=== PATIENT | female | born 1965 | race Caucasian/White ===

== ENCOUNTER → 2020-03-01 12:30 | Outpatient (BNVA) | payer OTHER, SELFPAY | PROVIDERS: Family Provider Family Medicine; Visit Provider Nurse Practitioner Family | DX: Z20.828 Contact with and (suspected) exposure to other viral communicable diseases (principal) | CPT/HCPCS: 87635 ==

== ENCOUNTER → 2020-09-04 09:13 | Outpatient (BNVA) | payer SELFPAY | PROVIDERS: Family Provider Family Medicine; Visit Provider Podiatrist Foot & Ankle Surgery | DX: S86.012A Strain of left Achilles tendon, initial encounter (principal); X58.XXXA Exposure to other specified factors, initial encounter; M79.89 Other specified soft tissue disorders; M19.072 Primary osteoarthritis, left ankle and foot | CPT/HCPCS: 73610 ==

== ENCOUNTER 2020-09-04 10:54 | Outpatient (CLI) | payer SELFPAY | END 2020-09-04 10:55 | disposition home or self-care (01) | LOC: SPT 10:55 | PROVIDERS: Family Provider Family Medicine; Visit Provider Podiatrist Foot & Ankle Surgery | DX: Z46.89 Encounter for fitting and adjustment of other specified devices (principal); S86.019D Strain of unspecified Achilles tendon, subsequent encounter; X58.XXXD Exposure to other specified factors, subsequent encounter | CPT/HCPCS: L4361 ==

== ENCOUNTER → 2020-11-07 10:04 | Outpatient (BNVA) | payer OTHER, SELFPAY | PROVIDERS: Family Provider Family Medicine; Visit Provider Family Medicine | DX: Z20.828 Contact with and (suspected) exposure to other viral communicable diseases (principal) | CPT/HCPCS: 87635 ==

== ENCOUNTER → 2021-04-19 10:15 | Outpatient (BNVA) | payer OTHER, SELFPAY | PROVIDERS: Family Provider Family Medicine; Visit Provider Family Medicine | DX: Z20.828 Contact with and (suspected) exposure to other viral communicable diseases (principal) | CPT/HCPCS: 87426; 87635 ==

== ENCOUNTER 2021-04-20 11:52 | Outpatient (CLI) | payer OTHER, SELFPAY ==
[2021-04-20 12:17] VITALS: BP 139/89; PULSE 68; RESP 17; TEMP 36.6; O2SAT 97; BMI 49.4
[2021-04-20 13:25] VITALS: BP 134/75; PULSE 86; RESP 17; TEMP 36.4; O2SAT 98
[2021-04-20 14:25] VITALS: BP 127/77; PULSE 82; RESP 17; TEMP 36.4; O2SAT 94
== END 2021-04-20 11:53 | disposition home or self-care (01) ==
LOC: OPS 11:53
PROVIDERS: Visit Provider Family Medicine
DX: U07.1 COVID-19 (principal)
CPT/HCPCS: 96365

== ENCOUNTER → 2021-09-18 10:40 | Outpatient (BNVA) | payer SELFPAY | PROVIDERS: Referring Provider Family Medicine; Visit Provider Orthopaedic Surgery | DX: S89.90XA Unspecified injury of unspecified lower leg, initial encounter (principal); M17.12 Unilateral primary osteoarthritis, left knee; M23.304 Other meniscus derangements, unspecified medial meniscus, left knee; W54.1XXA Struck by dog, initial encounter | CPT/HCPCS: 73560; 73565 ==

== ENCOUNTER 2022-12-29 20:07 | Observation (INO) | payer SELFPAY ==
[2022-12-29 20:13] VITALS: BP 157/80; PULSE 95; RESP 20; TEMP 36.6; O2SAT 99; BMI 57.7
--- NOTE | 2022-12-29 20:46 | W.ED.ARRPALP ---
HPI - Arrhythmia/Palpitations General: Chief Complaint: Arrhythmia/Palpitations Stated Complaint: shortness of breath Time Seen by Provider: 12/29/22 20:31 History of Present Illness: 57-year-old female reports that she has a history of paroxysmal atrial fibrillation. She felt herself going into A-fib last night around 8 PM. She took an old Cardizem 120 mg extended release tablet at 10 PM. She took another 1 at 10 AM this morning because she was still having symptoms. It does not seem to have made any difference. She has shortness of breath when she lays flat or exerts herself. She also feels sort of lightheaded and faint with exertion. She takes aspirin. Her only comorbid condition is morbid obesity. She denies any ischemic or structural heart disease. No diagnosed sleep apnea. Associated symptoms: Deny nausea, syncope or vomiting Review of Systems General: Reports: 10 or more systems reviewed and unremarkable except in HPI and below Const: Denies: fever(s), chills or body aches Eyes: Denies: change in vision Card: Denies: edema or syncope Resp: Denies: productive cough GI: Denies: abdominal pain, nausea, vomiting or diarrhea : Denies: flank pain, dysuria or urinary frequency Musc: Denies: neck pain, back pain, extremity pain or extremity swelling Skin/Breast: Denies: rash or erythema Neuro: Denies: headache(s), numbness in extremities, weakness in extremities, lack of coordination or difficulty walking PFS ED PFSH: Social History Smoking and tobacco status: never smoked Alcohol intake: never Substance/Drug Use: never Current occupational status: employed Physical Exam Const: COMMON NORMALS: no limitations and alert EXAM LIMITATIONS: no altered mental status OTHER: Morbid obesity, prefers to sit up rather than lay flat HENMT: COMMON NORMALS: normocephalic, atraumatic and external ears normal HEAD & SCALP: normocephalic and atraumatic EXTERNAL EAR: Yes external ears normal MOUTH: no muffled voice Eye: COMMON NORMALS: EOMs intact bilaterally, conjunctivae normal and no scleral icterus CONJUNCTIVA: Yes conjunctivae normal Neck/C-Spine: COMMON NORMALS: no JVD GENERAL: Yes normal visual inspection and Yes trachea midline Resp: COMMON NORMALS: normal respiratory effort, No use of accessory muscles and clear to auscultation bilaterally AUSCULTATION: clear to auscultation bilaterally Cardio: COMMON NORMALS: no JVD RATE: tachycardic RHYTHM: abnormal rhythm HEART SOUNDS: no murmurs GI: COMMON NORMALS: Soft to palpation and non-tender PALPATION: Yes Soft to palpation and No Guarding due to palpation present (GI) Extremity: COMMON NORMALS: normal to inspection Neuro: COMMON NORMALS: moves all extremities, no focal motor deficits and no sensory deficits noted SENSORIUM/ORIENTATION: Yes alert SPEECH: speech normal Psych: COMMON NORMALS: mental status grossly normal, Normal thought process present, cooperative, normal affect and speech normal SPEECH: Yes normal speech THOUGHT PROCESS: Normal thought process present Skin: COMMON NORMALS: no rashes or lesions noted, turgor normal and no jaundice GENERAL SKIN EXAM: no rashes or lesions noted and turgor normal Course Vital Signs: Vital signs: Vital Signs Temperature 97.9 F 12/29/22 20:13 Pulse Rate 82 12/29/22 21:18 Respiratory Rate 23 H 12/29/22 21:18 Blood Pressure 147/99 12/29/22 21:18 Pulse Oximetry 94 12/29/22 21:18 Oxygen Delivery Me thod Room Air, Nasal C annula 12/29/22 21:18 MDM - Arrhythmia/Palpitations Medical Decision Making Paroxysm of atrial fibrillation with intermittent rapid ventricular response. [id number] score is low. Patient prefers aspirin over anticoagulation. She is symptomatic with her A-fib. She would like to achieve sinus rhythm if possible. She states she is very sensitive to medications. We will start with a small dose of Cardizem as an IV bolus. We will also check TSH, electrolytes, blood sugar, hemoglobin. EKG my interpretation from 2039 08 PM. Sinus rhythm, first-degree AV block, QRS duration is normal, isolated T wave inversion in lead III, no other abnormal ST or T waves. Patient got 10 mg of Cardizem. She is rate controlled but still in atrial fibrillation. She did a trial of ambulation to the bathroom and was extremely short of breath. She still does not want me to give her any large bolus. I will give her another 10 mg bolus. If she does not cardiovert, she'd like to do a cardizem drip overnight. I spoke to hospitalist about admitting to [facility] on cardizem gtt. Lab Data 12/29/22 21:14 12/29/22 21:14 Laboratory Results WBC 8.05 10^3/uL (3.29-11.43) 12/29/22 21:14 RBC 4.21 10^6/uL (3.85-5.65) 12/29/22 21:14 Hgb 12.70 g/dL (11.27-16.99) 12/29/22 21:14 Hct 39.5 % (36-47) 12/29/22 21:14 MCV 93.8 fl (85-98) 12/29/22 21:14 MCH 30.2 pg (27-33) 12/29/22 21:14 MCHC 32.2 g/dL (30-55) 12/29/22 21:14 RDW 14.0 % (12.1-15.1) 12/29/22 21:14 Plt Count 290 10^3/cmm (157-399) 12/29/22 21:14 MPV 10.1 fL (7.4-10.4) 12/29/22 21:14 Neut % (Auto) 60.1 % 12/29/22 21:14 Lymph % (Auto) 27.5 % 12/29/22 21:14 Menard % (Auto) 9.3 % 12/29/22 21:14 Eos % (Auto) 2.0 % 12/29/22 21:14 Baso % (Auto) 0.7 % 12/29/22 21:14 Neut # (Auto) 4.84 10^3/uL (1.8-7.7) 12/29/22 21:14 Lymph # (Auto) 2.2 10^3/uL (0.8-4.8) 12/29/22 21:14 [place]ard # (Auto) 0.8 10^3/uL (0.2-0.9) 12/29/22 21:14 Eos # (Auto) 0.2 10^3/uL (0.0-0.8) 12/29/22 21:14 Baso # (Auto) 0.1 10^3/uL (0.0-0.1) 12/29/22 21:14 Nucleated RBC % (auto) 0 % 12/29/22 21:14 Nucleated RBCs # 0.0 /100WBC 12/29/22 21:14 Sodium 142 mmol/L (136-145) 12/29/22 21:14 Potassium 4.0 mmol/L (3.5-5.1) 12/29/22 21:14 Chloride 105 mmol/L (98-107) 12/29/22 21:14 Carbon Dioxide 28 mmol/L (22-29) 12/29/22 21:14 Anion Gap 13.0 (5-19) 12/29/22 21:14 BUN 19 mg/dL (6-20) 12/29/22 21:14 Creatinine 0.8 mg/dL (0.5-0.9) 12/29/22 21:14 GFR Calculation 74.2 mL/min (90-130) L 12/29/22 21:14 Glucose 89 mg/dL (65-115) 12/29/22 21:14 Calculated Osmolality 296 mOsm/kg (285-295) H 12/29/22 21:14 Calcium 8.8 mg/dL (8.5-10.5) 12/29/22 21:14 Magnesium 2.1 mg/dL (1.7-2.3) 12/29/22 21:14 Total Bilirubin 0.2 mg/dL (0.15-1.2) 12/29/22 21:14 AST 15 U/L (0-32) 12/29/22 21:14 ALT 18 U/L (0-33) 12/29/22 21:14 Alkaline Phosphatase 81 U/L (35-105) 12/29/22 21:14 Total Protein 6.9 g/dL (6.6-8.7) 12/29/22 21:14 Albumin 4.1 g/dL (3.5-5.2) 12/29/22 21:14 Globulin 2.8 g/dL (1.3-4.6) 12/29/22 21:14 TSH 4.33 uIU/mL (0.27-4.20) H 12/29/22 21:14 Discharge Plan Discharge Patient Disposition: Placed in Observation Clinical Impression: Atrial fibrillation Condition: Stable Prescriptions: No Action aspirin [Adult Aspirin Regimen] 81 mg tablet,delayed release (DR/EC) 81 mg PO DAILY (DME) RANDAL lema See Rx Instructions .Route .MEDSUPPLY Qty: 1 0RF Rx Instructions: As directed fluorouracil [Efudex] 5 % cream 1 applic topical BID 42 Days Qty: 40 1RF Referrals: Chad Whaley MD [Primary Care Provider] - Coding Level of Care Code ED Hand Mold Maker for Aideeg Christiano
[2022-12-29] MEDS: aspirin 81 mg Chew Tablet 324 MG PO (20:52)
[2022-12-29] MEDS: dilTIAZem 5 mg/mL SDV 5 mL 10 MG IVP ×2 (21:15→22:10)
[2022-12-29] MEDS: sodium chloride 0.9% 500 ML 999 ML IV (21:15)
[2022-12-29 21:16] LABS: Basophils # 0.1 10^3/uL (0.0-0.1); Basophils % 0.7 %; Eosinophils # 0.2 10^3/uL (0.0-0.8); Hematocrit 39.5 % (36-47); Lymphocytes # 2.2 10^3/uL (0.8-4.8); Lymphocytes % 27.5 %; Mean Corpuscular HGB Conc 32.2 g/dL (30-55); Mean Corpuscular Hemoglobin 30.2 pg (27-33); Mean Corpuscular Volume 93.8 fl (85-98); Mean Platelet Volume 10.1 fL (7.4-10.4); Monocytes # 0.8 10^3/uL (0.2-0.9); Monocytes % 9.3 %; Neutrophils # 4.84 10^3/uL (1.8-7.7); Neutrophils % 60.1 %; Nucleated Red Blood Cells % 0 %; Platelet Count 290 10^3/cmm (157-399); Red Blood Count 4.21 10^6/uL (3.85-5.65); White Blood Count 8.05 10^3/uL (3.29-11.43)
[2022-12-29 21:18] VITALS: BP 147/99; PULSE 82; RESP 23; O2SAT 94
[2022-12-29 21:42] LABS: Alanine Aminotransferase 18 U/L (0-33); Albumin Level 4.1 g/dL (3.5-5.2); Alkaline Phosphatase 81 U/L (35-105); Aspartate Amino Transferase 15 U/L (0-32); Blood Urea Nitrogen 19 mg/dL (6-20); Calcium 8.8 mg/dL (8.5-10.5); Carbon Dioxide 28 mmol/L (22-29); Globulin 2.8 g/dL (1.3-4.6); Glomerular Filtration Rate 74.2 mL/min (90-130); Glucose 89 mg/dL (65-115); Magnesium 2.1 mg/dL (1.7-2.3); Thyroid Stimulating Hormone 4.33 uIU/mL (0.27-4.20); Total Bilirubin 0.2 mg/dL (0.15-1.2); Total Protein 6.9 g/dL (6.6-8.7)
[2022-12-29 22:05] LABS: Chloride 105 mmol/L (98-107); Osmolality Calculated 296 mOsm/kg (285-295); Sodium 142 mmol/L (136-145)
--- NOTE | 2022-12-29 22:09 | XRR_ITS ---
PROCEDURE INFORMATION: Exam: XR Chest Exam date and time: 12/29/2022 10:22 PM Age: 57 years old Clinical indication: Dyspnea and shortness of breath; Patient HX: SOB and dyspnea. History of afib. ; Additional info: Dyspnea, afib TECHNIQUE: Imaging protocol: Radiologic exam of the chest. Views: 1 view. COMPARISON: CR XR chest 1V [id number] 08/09/2017 8:03 AM FINDINGS: Lungs: Lungs are clear. Pleural spaces: No pleural effusion. No pneumothorax. Heart/Mediastinum: Cardiomediastinal silhouette is within normal limits but cardiac silhouette size is slightly increased compared to the prior exam. Bones/joints: No acute osseous abnormality. Post ACDF. XR/XR chest 1V portable [id number] IMPRESSION: Mild enlargement of the cardiac silhouette compared to the prior exam which may reflect elevated intravascular volume and/or small pericardial effusion.
[2022-12-29 22:43] LABS: Troponin(5th) Baseline 8 ng/L (0-10)
--- NOTE | 2022-12-29 23:01 | ECG_ITS ---
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 Measurements Intervals [place] Rate: 62 P: 0 CA: 0 QRS: 18 QRSD: 121 T: 10 QT: 404 QTc: 413 Interpretive Statements ATRIAL FIBRILLATION POSSIBLE RIGHT VENTRICULAR CONDUCTION DELAY [RSR (QR) IN V1/V2] POSSIBLE LATERAL MYOCARDIAL INFARCTION , OF INDETERMINATE AGE [30 ms Q WAVE IN I/aVL/V5/V6] Compared to ECG 08/09/2017 14:08:40 No significant changes Electronically Signed On 12-30-2022 16:02:58 CDT by Pancho Ferrer M.D. [email or web address]! [email or web address]/store/[id number]
[2022-12-29 23:23] VITALS: BP 152/85; PULSE 73; RESP 18; O2SAT 97
[2022-12-29 23:34] LABS: Troponin 5 2HR 6.44 ng/L (0-10)
--- NOTE | 2022-12-29 23:47 | PM.HP ---
Providers/Chief Complaint Admitting Physician: Shonda Torres MD Primary Care Provider: Chad Whaley MD Chief Complaint: shortness of breath History of Present Illness Shalonda Dailey is a 57 year old female with history of paroxysmal A-fib, asymptomatic and controlled since last 4 years, only on aspirin 81 mg daily ,multiple sclerosis presented with complaint of palpitation and shortness of breath at home since 1 day. She reports taking Cardizem ER 300 mg which she had from 2019 twice before coming to ER but with no relief. She had stress test done 5 years ago which was normal. She denies any fever nausea vomiting chest pain cough urinary or bowel complaints. She reports medications like metoprolol or Cardizem causes hypotension and bradycardia and hence she has not been taking any medications at home. She also reported to have recent stress related to her parents health. In ER she received 10 mg of IV Cardizem for heart rate of 140, but then she complained of feeling dizzy while walking to the bathroom. Currently her heart rate is 50-70 still in A-fib but she is asymptomatic now. Review of Systems Narrative: As per HPI Medications/Allergies Home Medications Medication Instructions Recorded Confirmed Last Taken Type CAM walker #1 ea 09/04/20 12/16/22 Unknown Rx aspirin 81 mg tablet,delayed 81 mg PO DAILY 09/04/20 12/16/22 04/20/21 08:00 History release (Adult Aspirin Regimen) fluorouracil 5 % topical cream 1 applic topical BID 6 weeks #40 12/16/22 12/16/22 Unknown Rx (Efudex) grams Allergies Allergy/AdvReac Type Severity Reaction Status Date / Time No Known Allergies Allergy Verified 12/16/22 12:57 PFSH Acute PFSH: Social History Smoking and tobacco status: never smoked Alcohol intake: never Substance/Drug Use: never Current occupational status: employed Vitals/I&O/Wt Last Vital Signs Temp 97.9 F 12/29/22 20:13 Pulse 73 12/29/22 23:23 Resp 18 12/29/22 23:23 BP 152/85 12/29/22 23:23 Pulse Ox 97 12/29/22 23:23 O2 Del Method Room Air, Nasal Cannula 12/29/22 21:18 12/29/22 12/29/22 12/30/22 14:59 22:59 06:59 Intake Total 500 / 500 Balance 500 / 500 Weight last 48 hrs Weight 172.365 kg Physical Exam Narrative: She is alert awake oriented x3 not in acute distress, she is morbidly obese Chest clear to auscultation bilaterally Cardiovascular normal heart sounds regular rhythm Abdomen NAD Extremities bilateral 1+ edema present, chronic vascular changes seen in bilateral lower extremities. Data 12/29/22 21:14 12/29/22 21:14 CXR: Radiologist's impression: MPRESSION: Mild enlargement of the cardiac silhouette compared to the prior exam which may reflect elevated intravascular volume and/or small pericardial effusion. ? EKG 1: My Interpretation: Atrial fibrillation with rate controlled at 62 bpm, no acute ST-T changes A&P Assessment and plan (1) Atrial fibrillation: 57-year-old female with past history of paroxysmal atrial fibrillation on aspirin at home, multiple sclerosis presented with complaint of shortness of breath and palpitation and found to have heart rate of 140. Plan Admit to [facility] for observation She is asymptomatic now. EKG showed atrial fibrillation with rate controlled. Will start metoprolol 25 mg twice daily Continue to monitor Check 2D echo in a.m. Continue home medications. IV Pepcid 20 mg every 12 for stress ulcer prophylaxis Subcutaneous Lovenox 40 mg daily for DVT prophylaxis. She is full code for now Attestations Medical Necessity Statement*: She is here for observation since atrial fibrillation with controlled ventricular rate. Time Spent in Patient Care: 35 minutes Coding Level of Care Code Critical Care >/= 30 minutes Diagnoses Atrial fibrillation I48.91 Time Spent (min) 35
[2022-12-29 23:55] LABS: Troponin 5 2HR Delta -1.56 ABS# (0-10)
[2022-12-30] VITALS (11 sets, daily range): BP systolic 114–143; BP diastolic 69–81; PULSE 60–85; RESP 16–18; TEMP 36.4–36.7; O2SAT 96–99
--- NOTE | 2022-12-30 | USCV_ITS ---
Shalonda Dailey Age: 57 Gender: F : 1965 Exam Date: 12/30/2022 12:29 Ordering Phys: Aime Pulido MD Technologist: Sandeep Hicks Exam Location: [facility] [place] Indication: chest pain BP: 110 / 73 HR: 63 Rhythm: Sinus Technical Quality: Adequate MEASUREMENTS (Male / Female) Normal Values 2D ECHO LV Diastolic Diameter PLAX 4.1 cm 4.2 - 5.9 / 3.9 - 5.3 cm LV Systolic Diameter PLAX 3.1 cm IVS Diastolic Thickness 1.6 cm 0.6 - 1.0 / 0.6 - 0.9 cm IVS Systolic Thickness 1.8 cm LVPW Diastolic Thickness 1.6 cm 0.6 - 1.0 / 0.6 - 0.9 cm LVPW Systolic Thickness 1.5 cm LVOT Diameter 2.0 cm LV Ejection Fraction 2D Teich 47.1 % LV Ejection Fraction MOD 2C 66.6 % LV Ejection Fraction 2C AL 66.5 % LA Diameter 3.1 cm M-MODE Aortic Annulus Diameter 3.5 cm LA Ao Ratio MM 0.9 MV E Point Septal Separation 0.6 cm DOPPLER AV Peak Velocity 137.0 cm/s LVOT Peak Velocity 97.0 cm/s AV Area Cont Eq vti 2.3 cm squared AV Area Cont Eq pk 2.2 cm squared MV Area PHT 5.0 cm squared Mitral E to A Ratio 6.7 MV E' Velocity 85.0 cm/s Mitral E to MV E' Ratio 9.1 Mitral E to LV E' Lateral Ratio 9.5 Mitral E to LV E' Septal Ratio 8.7 TR Peak Velocity 166.7 cm/s TR Peak Gradient 11.1 mmHg TV Peak E Velocity 93.0 cm/s Right Atrial Pressure 3.0 mmHg Pulmonary Artery Systolic Pressu 14.1 mmHg FINDINGS Left Ventricle Left ventricle is normal in size. LV systolic function is normal with EF of 55 to 60%. No regional wall motion abnormalities are seen. Right Ventricle Normal in size and function Right Atrium Normal in size Left Atrium Normal in size Mitral Valve Structurally normal mitral valve. Aortic Valve Structurally normal aortic valve. No significant stenosis or regurgitation. Tricuspid Valve Mild tricuspid regurgitation. Insufficient TR jet to calculate RVSP Pulmonic Valve Not well visualized Pericardium Normal Aorta Normal in size IVC Appears to be normal CONCLUSIONS LV systolic function is normal with EF 55 to 60%. Mild tricuspid regurgitation Compared to prior echocardiogram from 08/09/2017, no significant changes are seen Cristiano Wray MD (Electronically Signed) Final Date: 30 December 2022 17:16 S
[2022-12-30] MEDS: enoxaparin 40 mg/0.4 mL Syringe SUBCUT (00:19)
--- NOTE | 2022-12-30 01:11 | PC.NURSE ---
Shalonda Dailey was transferred to room 254 at 2327, patient is admitted under the care of Dr. Torres. The patient ambulated from the ED bed to the hospital bed with stand by assist. Patient vital signs are 127/68, HR 75, RR 18 and even and unlabored, SPO2 99% on RA, temp 97.5 orally. Patient denies chest pain or any other pain, Patient is AAOX4. Patient oriented to the room and call light system. Call light and bedside table within reach, family at the bedside.
--- NOTE | 2022-12-30 02:57 | ECG_ITS ---
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 Measurements Intervals [place] Rate: 74 P: 0 [place]: 0 QRS: 30 QRSD: 127 T: 25 QT: 404 QTc: 449 Interpretive Statements ATRIAL FIBRILLATION POSSIBLE RIGHT VENTRICULAR CONDUCTION DELAY [RSR (QR) IN V1/V2] POSSIBLE ANTERIOR MYOCARDIAL INFARCTION , OF INDETERMINATE AGE [30 ms Q WAVE IN V3/V4, OR R < 0.2 mV IN V4] POSSIBLE INFERIOR MYOCARDIAL INFARCTION , PROBABLY OLD [30 ms Q WAVE IN II/aVF] Compared to ECG 12/29/2022 23:01:18 No significant changes Electronically Signed On 12-30-2022 16:04:25 CDT by Pancho Ferrer M.D. [email or web address] [email or web address].[employer] ASA/store/[id number]
[2022-12-30 05:58] LABS: Troponin 5 6HR 6.68 ng/L (0-10)
[2022-12-30 06:03] LABS: Troponin 5 6HR Delta -1.32 ng/L (0-12)
--- NOTE | 2022-12-30 08:44 | USCV_ITS ---
Shalonda Dailey Age: 57 Gender: F : 1965 Exam Date: 12/30/2022 12:29 Ordering Phys: Aime Pulido MD Technologist: Exam Location: [facility] [place] Indication: chest pain BP: 120 / 70 HR: 77 Rhythm: Sinus Technical Quality: Adequate MEASUREMENTS (Male / Female) Normal Values 2D ECHO LV Diastolic Diameter PLAX 4.3 cm 4.2 - 5.9 / 3.9 - 5.3 cm LV Systolic Diameter PLAX 2.8 cm IVS Diastolic Thickness 1.1 cm 0.6 - 1.0 / 0.6 - 0.9 cm IVS Systolic Thickness 2.0 cm LVPW Diastolic Thickness 1.0 cm 0.6 - 1.0 / 0.6 - 0.9 cm LVPW Systolic Thickness 0.9 cm LVOT Diameter 2.0 cm LV Ejection Fraction 2D Teich 64.7 % LV Ejection Fraction MOD 2C 75.0 % LV Ejection Fraction 2C AL 77.1 % LA Diameter 3.7 cm IVC Diameter 1.6 cm M-MODE Aortic Annulus Diameter 2.7 cm LA Ao Ratio MM 1.6 MV E Point Septal Separation 0.7 cm DOPPLER AV Peak Velocity 145.0 cm/s LVOT Peak Velocity 106.0 cm/s AV Area Cont Eq vti 2.4 cm squared AV Area Cont Eq pk 2.4 cm squared MV Area PHT 5.0 cm squared Mitral E to A Ratio 1.0 MV E' Velocity 41.5 cm/s Mitral E to MV E' Ratio 6.9 Mitral E to LV E' Lateral Ratio 7.7 Mitral E to LV E' Septal Ratio 6.3 TR Peak Velocity 156.0 cm/s TR Peak Gradient 9.7 mmHg TV Peak E Velocity 71.0 cm/s Right Atrial Pressure 3.0 mmHg Pulmonary Artery Systolic Pressu 12.7 mmHg FINDINGS Left Ventricle Left ventricle is normal in size. LV systolic function is normal with EF of 65 to 70%. No regional wall motion abnormalities are seen. Right Ventricle Normal in size and function Right Atrium Normal in size Left Atrium Normal in size Mitral Valve Structurally normal mitral valve. Aortic Valve Structurally normal aortic valve. No significant stenosis or regurgitation. Tricuspid Valve Mild tricuspid regurgitation. Insufficient TR jet to calculate RVSP Pulmonic Valve Not well-visualized Pericardium Normal Aorta Normal in size IVC Appears to be normal CONCLUSIONS LV systolic function is normal with EF of 65 to 70%. Mild tricuspid regurgitation Compared to prior echocardiogram from 2017, no significant changes are seen This is an addendum. Images under incorrect patient name. Please disregard report. Cristiano Wray MD (Electronically Signed) Final Date: 30 December 2022 12:39 Amended: 30 December 2022 13:25 C
[2022-12-30] MEDS: aspirin 81 mg EC Tablet PO (08:48)
[2022-12-30] MEDS: metoprolol tartrate 25 mg Tablet PO ×2 (08:48→20:21)
--- NOTE | 2022-12-30 09:04 | P.CONIM_ITS ---
Providers/Reason For Consult Consulting Physician/Specialty*: Cristiano Wray MD/ Cardiology Reason for Consult*: Atrial fibrillation Requesting Physician: Dr Pulido Attending Physician: Aime Pulido MD Primary Care Provider: Chad Whaley MD History of Present Illness History of Present Illness Shalonda Dailey is a 57 year old female with past medical history of multiple sclerosis, paroxysmal atrial fibrillation presented to hospital with 1 day of shortness of breath and palpitations. Her heart rate is well controlled at rest. Cardiology was consulted for evaluation regarding rate control versus rhythm control strategy. Echocardiogram performed today shows normal LV systolic function. Current patient was diagnosed with atrial fibrillation 4 to 5 years ago and since then no more episodes of A-fib. She is not on anticoagulation and does not want to start 1. Her [id number] score is 1 Review of Systems Narrative: CONSTITUTIONAL: No fever chills weight loss or gain or night sweats. [] HEENT: Normocephalic, atraumatic.[] RESPIRATORY: Shortness of breath CARDIOVASCULAR: shortness of breath GI: no nausea vomiting diarrhea. [] MANAGER MEDICARE MARKETING: No numbness, tingling, weakness or loss of function in any part of the body. [] MUSCULOSKELETAL: No knee or joint pain or rashes. [] Medications/Allergies Home Medications Medication Instructions Recorded Confirmed Last Taken Type CAM walker #1 ea 09/04/20 12/30/22 Unknown Rx [facility] Multi Greens 3 cap PO DAILY 12/30/22 12/30/22 Unknown History [facility] Sulfurzyme 3 cap PO DAILY 12/30/22 12/30/22 Unknown History ascorbic acid (vitamin C) 500 mg 1,000 mg PO QAM 12/30/22 12/30/22 Unknown History tablet (Vitamin C) cholecalciferol (vitamin D3) 125 125 mcg PO QAM 12/30/22 12/30/22 Unknown History mcg (5,000 unit) tablet (Vitamin D3) diltiazem HCl 120 mg 120 mg PO BID PRN afib 12/30/22 12/30/22 Unknown History capsule,extended release 12 hr omega-3 fatty acids-fish oil 684 1 cap PO DAILY 12/30/22 12/30/22 Unknown History mg-1,200 mg capsule,delayed release vitamin B complex 1 tab PO QAM 12/30/22 12/30/22 Unknown History Allergies Allergy/AdvReac Type Severity Reaction Status Date / Time No Known Allergies Allergy Verified 12/30/22 09:12 Current Medications Generic Name Dose Route Start Last Admin Trade Name Wu PRN Reason Stop Dose Admin Aspirin 81 mg 12/30/22 09:00 12/30/22 08:48 Aspirin 81 Mg Ec Tablet PO 81 mg DAILY CHARAN Administration Enoxaparin Sodium 40 mg 12/30/22 00:00 12/30/22 00:19 Enoxaparin 40 Mg/0.4 Ml Syringe SUBCUT 40 mg Q24H CHARAN Administration Metoprolol Tartrate 25 mg 12/30/22 09:00 12/30/22 08:48 Metoprolol Tartrate 25 Mg Tablet PO 25 mg BID@0900,2100 CHARAN Administration PFSH Acute PFSH: Social History Smoking and tobacco status: never smoked Alcohol intake: never Substance/Drug Use: never Current occupational status: employed Vitals/I&O/Wt Last Vital Signs Temp 97.6 F 12/30/22 08:00 Pulse 85 12/30/22 08:00 Resp 17 12/30/22 08:00 BP 143/81 12/30/22 08:00 Pulse Ox 98 12/30/22 08:00 O2 Del Method Room Air 12/30/22 08:00 12/29/22 12/30/22 12/30/22 22:59 06:59 14:59 Intake Total 500 / 500 1380 / 1880 240 / 240 Output Total 500 / 500 Balance 500 / 500 880 / 1380 240 / 240 Weight last 48 hrs Weight 380 lb Physical Exam Narrative: GENERAL: Patient is alert, awake and oriented x3. [] NECK: No jugular vein distension. [] HEENT: No cyanosis. No icterus. No pallor. [] HEART: Regular S1 and S2. No murmur, rub or gallop. [] LUNGS: Clear to auscultate bilaterally. [] CENTRAL NERVOUS SYSTEM: Grossly nonfocal. [] EXTREMITIES: Lower extremities with 1+ edema bilaterally. Pulses palpable in the lower extremities, both dorsalis pedis and posterior tibial. [] Data 12/31/22 05:59 12/31/22 05:59 A&P Assessment and plan (1) Atrial fibrillation: Plan Patient is atrial fibrillation. [id number] score is 1. I have recommended starting anticoagulation. However given score of 1, she wants to continue with aspirin. She is rate controlled. We will continue with metoprolol 25 mg daily. We will obtain stress test. If no evidence of scarring, can start on flecainide. However if has prior scar evidence, we will continue with rate controlling stretegy for now and event monitoring Continue tele monitoring Thank you for involving us with care of this patient. We will continue to follow. Please call with questions. Consult Attestations Medical Necessity Statement: Care expected to cross 2 midnights. Coding Level of Care Code Acute Code for [facility] Diagnoses Atrial fibrillation I48.91
--- NOTE | 2022-12-30 09:12 | PC.PHAR ---
pt states she takes care of her own medications-pt states she hasnt taken a baby aspirin daily for months-pt states she takes diltiazem sr 120mg bid prn states this is an old rx-
--- NOTE | 2022-12-30 12:07 | PM.PN ---
Subjective Subjective: History and physical reviewed. Patient reports last episode of atrial fibrillation about 4 years ago, resolved spontaneously after diltiazem was initiated. She states she was not tolerant of rate limiting medications in the past as she was very bradycardic. She states that currently when she rests in bed her heart rate goes down but with any activity it is 1 20-1 30. Previously when she took beta-blockers her heart rate got into the low 40s and she felt bad secondary to this but by that time, 4 years ago, she had converted to sinus rhythm. Medications: Reviewed: Yes Vitals/I&O/Wt Last Vital Signs Temp 98.1 F 12/30/22 11:54 Pulse 83 12/30/22 11:54 Resp 17 12/30/22 11:54 BP 133/79 12/30/22 11:54 Pulse Ox 96 12/30/22 11:54 O2 Del Method Room Air 12/30/22 11:54 12/29/22 12/30/22 12/30/22 22:59 06:59 14:59 Intake Total 500 / 500 1380 / 1880 720 / 720 Output Total 500 / 500 200 / 200 Balance 500 / 500 880 / 1380 520 / 520 Weight last 48 hrs Weight 172.365 kg Physical Exam Narrative: General exam no distress Neck is supple Cardiovascular irregular, irregular. Controlled rate Lungs clear Abdomen is soft Extremities no cyanosis clubbing or edema. Some venous stasis changes are noted bilaterally Data 12/29/22 21:14 12/29/22 21:14 Other Labs: TSH was checked and minimally elevated. A&P Assessment and plan (1) Atrial fibrillation: Patient presented with atrial fibrillation with rapid ventricular rate. She received some IV diltiazem, and was placed on metoprolol. TSH is minimally elevated, electrolytes normal. Echocardiogram has been ordered With any activity her heart rate increases substantially, even though controlled at rest Cardiology consult will be obtained, to determine if rhythm control can be achieved in this young female. Continue metoprolol 25 mg twice daily to control rate. Realize that this may have to be discontinued if she converts to sinus rhythm. Rate is not controlled with minimal exertion currently. CBC, BMP, magnesium in the morning Attestations Medical Necessity Statement*: Needs continued hospitalization, for evaluation for definitive care of atrial fibrillation. Rate is not controlled currently with minimal exertion and are awaiting opinion by specialist Diagnoses Atrial fibrillation I48.91 Time Spent (min) 23
--- NOTE | 2022-12-30 14:31 | ECG_ITS ---
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 Interpretive Statements NAME OF STUDY: LEXISCAN SESTAMIBI STRESS TEST INDICATION: [Chest Pain] Procedure: At the baseline, the blood pressure was 100/69mmHg with a heart rate of 74 bpm. The electrocardiogram showed atrial fibrillation, normal axis with normal ST and T's. The Lexiscan was infused over a period of 20 seconds. A total of 0.4 mg of Lexiscan was infused. The stress phase was continued for a total of 5 minutes. Heart rate was at the end of stress phase was 108 bpm and a blood pressure of 116/77 mmHg. The EKG at the peak infusion revealed atrial fibrillation with no significant ST-T wave changes. Sestamibi was injected 20 seconds after the Lexiscan infusion. Blood pressure at the end of recovery phase was 91/68mmHg with a heart rate of 89 bpm. Conclusion: 1. Normal EKG response to Lexiscan infusion 2. No Lexiscan induced chest pain or cardiac arrhythmia. 3. Normal blood pressure and heart rate response. 4. Sestamibi/sestamibi perfusion scan pending; see separate report. Electronically Signed On 12-31-2022 10:57:44 CDT by Cristiano Wray M.D. [id number]
[2022-12-31] VITALS (11 sets, daily range): BP systolic 91–137; BP diastolic 68–82; PULSE 67–92; RESP 13–18; TEMP 36.3–37.1; O2SAT 97–99
[2022-12-31] MEDS: enoxaparin 40 mg/0.4 mL Syringe SUBCUT (01:21)
[2022-12-31 06:07] LABS: Basophils % 0.5 %; Eosinophils # 0.2 10^3/uL (0.0-0.8); Eosinophils % 3.3 %; Hematocrit 39.5 % (36-47); Lymphocytes # 2.2 10^3/uL (0.8-4.8); Lymphocytes % 29.5 %; Mean Corpuscular HGB Conc 31.6 g/dL (30-55); Mean Corpuscular Hemoglobin 29.8 pg (27-33); Mean Platelet Volume 10.1 fL (7.4-10.4); Monocytes # 0.6 10^3/uL (0.2-0.9); Monocytes % 8.2 %; Neutrophils # 4.29 10^3/uL (1.8-7.7); Neutrophils % 58.2 %; Nucleated Red Blood Cells % 0 %; Platelet Count 267 10^3/cmm (157-399); Red Cell Distribution Width 13.9 % (12.1-15.1); White Blood Count 7.36 10^3/uL (3.29-11.43)
[2022-12-31 06:25] LABS: Alanine Aminotransferase 30 U/L (0-33); Albumin Level 3.6 g/dL (3.5-5.2); Alkaline Phosphatase 74 U/L (35-105); Anion Gap 8.4 (5-19); Aspartate Amino Transferase 23 U/L (0-32); Blood Urea Nitrogen 14 mg/dL (6-20); Calcium 8.8 mg/dL (8.5-10.5); Carbon Dioxide 31 mmol/L (22-29); Chloride 104 mmol/L (98-107); Globulin 2.7 g/dL (1.3-4.6); Glomerular Filtration Rate 74.2 mL/min (90-130); Glucose 94 mg/dL (65-115); Magnesium 1.9 mg/dL (1.7-2.3); Osmolality Calculated 288 mOsm/kg (285-295); Potassium 4.4 mmol/L (3.5-5.1); Sodium 139 mmol/L (136-145); Total Bilirubin 0.4 mg/dL (0.15-1.2); Total Protein 6.3 g/dL (6.6-8.7)
[2022-12-31] MEDS: regadenoson 0.4 Mg/5 ml Syringe IVP (07:26)
[2022-12-31] MEDS: aminophylline 25 mg/mL SDV 10 mL IVP (07:42)
--- NOTE | 2022-12-31 09:02 | P.PN_ITS ---
Subjective Subjective: Patient is feeling well at rest but any exertion causes her to get short of breath and fatigued. Heart rate is controlled at rest. Stress test showed scar in the RCA territory with minimal pilar-infarct ischemia. ECHO showed normal LV systolic function Vitals/I&O/Wt Last Vital Signs Temp 97.6 F 12/31/22 05:00 Pulse 91 12/31/22 07:46 Resp 18 12/31/22 05:00 BP 91/68 12/31/22 07:46 Pulse Ox 98 12/31/22 05:00 O2 Del Method Room Air 12/30/22 16:00 12/30/22 12/31/22 12/31/22 22:59 06:59 14:59 Intake Total 960 / 1680 110 / 1790 480 / 480 Output Total 300 / 500 Balance 660 / 1180 110 / 1290 480 / 480 Weight last 48 hrs Weight 380 lb Physical Exam Narrative: GENERAL: Patient is alert, awake and oriented x3. [] NECK: No jugular vein distension. [] HEENT: No cyanosis. No icterus. No pallor. [] HEART:Irregularly irregular, S1 and S2. No murmur, rub or gallop. [] LUNGS: Clear to auscultate bilaterally. [] CENTRAL NERVOUS SYSTEM: Grossly nonfocal. [] EXTREMITIES: Lower extremities with 1+ edema bilaterally. Pulses palpable in the lower extremities, both dorsalis pedis and posterior tibial. [] Data 12/31/22 05:59 12/31/22 05:59 A&P Assessment and plan (1) Atrial fibrillation: Plan Patient's stress test showed scar in RCA territory. This limits within the pocket approach. She is rate controlled at this time but having significant symptoms. We will proceed with MAY cardioversion tomorrow. She understands the risks and benefits and wants to proceed with it. We will hold metoprolol from now until procedure is done as post cardioversion can become bradycardic. NPO past midnight We will start Eliquis 5 mg twice daily tonight. Continue tele monitoring Thank you for involving us with care of this patient. We will continue to follow. Please call with questions. Attestations Medical Necessity Statement*: Care expected to cross 2 midnights Coding Level of Care Code Acute Code for [facility] Diagnoses Atrial fibrillation I48.91
[2022-12-31] MEDS: aspirin 81 mg EC Tablet PO (09:11)
[2022-12-31] MEDS: metoprolol tartrate 25 mg Tablet PO (09:12)
--- NOTE | 2022-12-31 10:04 | PM.PN ---
Subjective Subjective: Still feeling irregular heartbeat at times. Feels a little short of breath when she gets up. Telemetry indicates heart rate is controlled while resting, but goes up into the 120s or higher with minimal exertion. Nuclear stress test done today, pending review by cardiology. Medications: Reviewed: Yes Vitals/I&O/Wt Last Vital Signs Temp 97.9 F 12/31/22 08:00 Pulse 73 12/31/22 08:00 Resp 17 12/31/22 08:00 BP 137/82 12/31/22 08:00 Pulse Ox 99 12/31/22 08:00 O2 Del Method Room Air 12/31/22 08:00 12/30/22 12/31/22 12/31/22 22:59 06:59 14:59 Intake Total 960 / 1680 110 / 1790 480 / 480 Output Total 300 / 500 Balance 660 / 1180 110 / 1290 480 / 480 Weight last 48 hrs Weight 172.365 kg Physical Exam Narrative: General exam no distress Neck is supple Cardiovascular irregular, irregular. Lungs clear Abdomen is soft Extremities no cyanosis clubbing or edema. Data 12/31/22 05:59 12/31/22 05:59 A&P Assessment and plan (1) Atrial fibrillation: Patient presented with atrial fibrillation with rapid ventricular rate. She received some IV diltiazem, and was placed on metoprolol. TSH is minimally elevated, electrolytes normal. Echocardiogram is largely normal With any activity her heart rate increases substantially, even though controlled at rest Cardiology consult obtained, to determine if rhythm control can be achieved in this young female. Continue metoprolol 25 mg twice daily to control rate. Realize that this may have to be discontinued if she converts to sinus rhythm. Rate is not controlled with minimal exertion currently. Await nuclear stress test. Cardiology would like to review this before considering other therapies. No need for any laboratory tomorrow. Nuclear stress test is normal, consideration will be given to medication that could possibly chemically convert patient. Plan Full code Lovenox for DVT prophylaxis Attestations Medical Necessity Statement*: Needs continued hospitalization pending nuclear stress test results, definitive treatment for atrial fibrillation which is still symptomatic. Diagnoses Atrial fibrillation I48.91 Time Spent (min) 21
--- NOTE | 2022-12-31 14:32 | NMCV_ITS ---
NM mary perf SPECT r/s* [id number] Shalonda Dailey Age: 57 Gender: F : 1965 Exam Date: 12/31/2022 06:45 Ordering Phys: Aime Pulido MD Technologist: DEN Terrell Exam Location: [facility] Indications: CHEST PAIN STRESS TEST Please see separate stress test report in [facility] for full findings IMAGE PROTOCOL Rest/Stress 1 Lexiscan Day Radiopharmaceutical Dose (mCi) Administration Site Administered by Rest: Tc-99m 10.8 IV DEN Myers Sestamibi Stress:Tc-99m 33.0 IV DEN Myers Sestamibi Rest: 31-Dec-2022 60 Discovery 630 Stress: 31-Dec-2022 30 Discovery 630 0.4mg Lexiscan. Images obtained in supine and prone position. SPECT RESULTS Technical Quality: Good Raw Data Analysis: Breast attenuation, Soft tissue attenuation Image Corrections: No attenuation or motion correction applied Summed Stress Score: 5 Summed Rest Score: 4 Summed Difference Score: 1 PERFUSION FINDINGS Small sized perfusion abnormality of mild severity of mid to apical inferior wall with subtle reversibility in apical inferior and apical lateral linton on stress images. FUNCTIONAL RESULTS (calculated via Gated SPECT) Stress Image LV EF (%): 61 Stress EDV (mL):88 TID: 1.16 Stress ESV (mL):34 FUNCTIONAL FINDINGS: The left ventricle is normal in size. Transient Ischemia Dilatation of 1.16. The left ventricular ejection fraction is normal with a value of 61%. There is normal left ventricular wall thickening. Normal end diastolic and end systolic volumes. IMPRESSIONS 1. Small sized perfusion abnormality of mild severity of mid to apical inferior wall with subtle reversibility in apical inferior and apical lateral linton. 2. This may represent old myocardial infarction in right coronary artery territory with minimal pilar-infarct ischemia or attenuation artifact. 3. Overall left ventricular systolic function is normal without regional wall motion abnormalities, LVEF=61%. 4. EKG portion of the study will be reported separately. Cindy Villanueva MD (Electronically Signed) Final Date: 31 December 2022 10:32 S
[2022-12-31] MEDS: apixaban 5 mg Tablet PO (20:57)
[2023-01-01] VITALS (11 sets, daily range): BP systolic 100–131; BP diastolic 57–99; PULSE 72–84; RESP 14–19; TEMP 36.4–36.9; O2SAT 96–100
[2023-01-01] MEDS: aspirin 81 mg EC Tablet PO (08:02)
[2023-01-01] MEDS: apixaban 5 mg Tablet PO (08:02)
--- NOTE | 2023-01-01 08:20 | P.PN_ITS ---
Subjective Subjective: Patient doing well. Underwent successful cardioversion. Vitals/I&O/Wt Last Vital Signs Temp 97.8 F 01/01/23 07:27 Pulse 72 01/01/23 07:27 Resp 18 01/01/23 07:27 BP 120/81 01/01/23 07:27 Pulse Ox 100 01/01/23 07:27 O2 Del Method Room Air 01/01/23 07:27 12/31/22 01/01/23 01/01/23 22:59 06:59 14:59 Intake Total 360 / 1320 Balance 360 / 1320 Physical Exam Narrative: GENERAL: Patient is alert, awake and oriented x3. [] NECK: No jugular vein distension. [] HEENT: No cyanosis. No icterus. No pallor. [] HEART:Irregularly irregular, S1 and S2. No murmur, rub or gallop. [] LUNGS: Clear to auscultate bilaterally. [] CENTRAL NERVOUS SYSTEM: Grossly nonfocal. [] EXTREMITIES: Lower extremities with 1+ edema bilaterally. Data 12/31/22 05:59 12/31/22 05:59 A&P Assessment and plan (1) Atrial fibrillation: Plan Patient is currently in normal sinus rhythm. Tolerated cardioversion well. Will be discharged home on Eliquis and metoprolol. Event monitor to be arranged as outpatient Thank you for involving us with care of this patient. Patient is stable to be discharged from cardiology standpoint. Please call with questions. Attestations Medical Necessity Statement*: Care expected to cross 2 midnights. Coding Level of Care Code Acute Code for [facility] Diagnoses Atrial fibrillation I48.91
--- NOTE | 2023-01-01 10:23 | ECG_ITS ---
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 Measurements Intervals [place] Rate: 79 P: 0 [place]: 0 QRS: 26 QRSD: 128 T: 15 QT: 380 QTc: 438 Interpretive Statements ATRIAL FIBRILLATION POSSIBLE RIGHT VENTRICULAR CONDUCTION DELAY [RSR (QR) IN V1/V2] POSSIBLE INFERIOR MYOCARDIAL INFARCTION , PROBABLY OLD [30 ms Q WAVE IN II/aVF] MODERATE T-WAVE ABNORMALITY, CONSIDER ANTERIOR ISCHEMIA [-0.1+ mV T-WAVE IN V3/V4] Compared to ECG 12/30/2022 02:57:27 T-wave abnormality now present Possible ischemia now present Myocardial infarct finding still present Electronically Signed On 01-01-2023 10:53:46 CDT by Cindy Villanueva M.D. [id number]
[2023-01-01] MEDS: sodium chloride 0.9% 1,000 ML 30 ML IV (10:38)
--- NOTE | 2023-01-01 10:55 | W.PM.OPSUD ---
Surgery/Procedure H&P Update DATE OF PROCEDURE: December 30, 2022 DATE H&P PERFORMED: 12/30/22 H&P UPDATE INFORMATION: I have reviewed H&P completed within last 30 days, I have examined patient prior to procedure and Changes to prior documentation as noted here CHANGES TO PREVIOUS DOCUMENTATION: Initial plan was to rate control vs antiarrhythmics but stress test showed scar tissue and she is very symptomatic with rate control stretegy. We then decided to proceed with MAY. Risks and benefits of the procedure have been discussed with the patient. She understands the risks and benefits and wants to proceed. PREOP DIAGNOSIS: Atrial fibrillation PRIMARY INDICATION FOR PROCEDURE: Atrial fibrillation PLANNED PROCEDURE: Operation Date: 01/01/23 11:00 Proposed Procedures p MAY(Not Applicable) - Cristiano Wray M.D s Cardioversion(Not Applicable) - Cristiano Wray M.D Anesthesia team is administering the sedation
--- NOTE | 2023-01-01 11:00 | USCV_ITS ---
Shalonda Dailey Age: 57 Gender: F : 1965 Exam Date: 01/01/2023 11:42 Ordering Phys: Cristiano Wray M.D ([email or web address]) Technologist: LEANNA Exam Location: [facility] [place] Indication: A FIB BP: 118 / 95 HR: Rhythm: Sinus Technical Quality: Adequate MEASUREMENTS (Male / Female) Normal Values Medications Complications None Proc. Components After anesthesia team administered sedation, we proceeded with advancing MAY probe FINDINGS Left Ventricle Left ventricle is normal in size and function Right Ventricle Normal in size and function Right Atrium Grossly normal Left Atrium Grossly normal LA Appendage No left atrial appendage thrombus is seen IA Septum Grossly normal Mitral Valve Structurally normal mitral valve. Mild mitral regurgitation. Aortic Valve Structurally normal aortic valve. Tricuspid Valve Grossly normal Pulmonic Valve Grossly normal Pericardium Normal Aorta Minimal atherosclerotic plaque CONCLUSIONS Left ventricle is normal in size and function No left atrial appendage thrombus Mild mitral regurgitation Minimal atherosclerotic plaque in the aorta Cristiano Wray MD (Electronically Signed) Final Date: 02 January 2023 10:34 S
--- NOTE | 2023-01-01 11:34 | P.ANESASSM_ITS ---
Pre-Anesthetic Assessment Height/Weight: Height 1.73 m Weight 172.365 kg Temp Pulse Resp BP Pulse Ox O2 Del Method 97.6 F 84 18 131/99 96 Room Air 01/01/23 10:17 01/01/23 10:17 01/01/23 10:17 01/01/23 10:17 01/01/23 10:17 01/01/23 10:17 Preop Diagnosis: Atrial fibrillation Operation Date: 01/01/23 11:00 Proposed Procedures p MAY(Not Applicable) - Summer Monahan Cardioversion(Not Applicable) - Cristiano Wray M.D Familial anesthetic complications: none Was Beta Herman taken within 24 hours: N/A Was Clonidine taken within 24 hours: N/A Social No alcohol and No tobacco Exam alert, oriented x 3 and clear to auscultation bilaterally Airway Submandibular: within normal limits Cervical ROM: within normal limits Mallampati: Class II Comments: Comments: 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 CV/HEM Atrial Fibrillation Metabolic Morbid Obesity [facility] Osteoarthritis/DJD Anesthetic Plan ASA status: 3 Anesthesia: MAC Medications/Allergies Home Medications Medication Instructions Recorded Confirmed Last Taken Type CAM walker #1 ea 09/04/20 12/30/22 Unknown Rx [facility] Multi Greens 3 cap PO DAILY 12/30/22 12/30/22 Unknown History [facility] Sulfurzyme 3 cap PO DAILY 12/30/22 12/30/22 Unknown History ascorbic acid (vitamin C) 500 mg 1,000 mg PO QAM 12/30/22 12/30/22 Unknown History tablet (Vitamin C) cholecalciferol (vitamin D3) 125 125 mcg PO QAM 12/30/22 12/30/22 Unknown History mcg (5,000 unit) tablet (Vitamin D3) diltiazem HCl 120 mg 120 mg PO BID PRN afib 12/30/22 12/30/22 Unknown History capsule,extended release 12 hr omega-3 fatty acids-fish oil 684 1 cap PO DAILY 12/30/22 12/30/22 Unknown History mg-1,200 mg capsule,delayed release vitamin B complex 1 tab PO QAM 12/30/22 12/30/22 Unknown History Allergies Allergy/AdvReac Type Severity Reaction Status Date / Time No Known Allergies Allergy Verified 12/30/22 09:12 Current Medications Generic Name Dose Route Start Last Admin Trade Name Freq PRN Reason Stop Dose Admin Apixaban 5 mg 12/31/22 21:00 01/01/23 08:02 Apixaban 5 Mg Tablet PO 5 mg BID@0900,2100 CHARAN Administration Aspirin 81 mg 12/30/22 09:00 01/01/23 08:02 Aspirin 81 Mg Ec Tablet PO 81 mg DAILY CHARAN Administration Sodium Chloride 1,000 mls @ 30 mls/hr 01/01/23 10:15 01/01/23 10:38 Sodium Chloride 0.9% IV 01/02/23 10:14 30 mls/hr .Q24H CHARAN Administration PFSH Anesthesia Social History Smoking and tobacco status: never smoked Alcohol intake: never Substance/Drug Use: never Current occupational status: employed Data Anesthesia 12/31/22 05:59 12/31/22 05:59 Short CBC 12/31/22 Range/Units 05:59 WBC 7.36 (3.29-11.43) 10^3/uL Hgb 12.50 (11.27-16.99) g/dL Hct 39.5 (36-47) % MCV 94.0 (85-98) fl Plt Count 267 (157-399) 10^3/cmm Neut % (Auto) 58.2 % Neut # (Auto) 4.29 (1.8-7.7) 10^3/uL BMP 12/31/22 05:59 Sodium 139 Potassium 4.4 Chloride 104 Carbon Dioxide 31 H BUN 14 Creatinine 0.8 Glucose 94 Calcium 8.8 Liver Function 12/31/22 Range/Units 05:59 Total Bilirubin 0.4 (0.15-1.2) mg/dL AST 23 (0-32) U/L ALT 30 (0-33) U/L Alkaline Phosphatase 74 (35-105) U/L Albumin 3.6 (3.5-5.2) g/dL Cardiac Studies: Echocardiogram 12/30/22 Sestamibi Stress Test (Cardiology) 12/30
--- NOTE | 2023-01-01 12:01 | ECG_ITS ---
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 Measurements Intervals [place] Rate: 72 P: 72 [place]: 197 QRS: 26 QRSD: 121 T: 37 QT: 408 QTc: 448 Interpretive Statements SINUS RHYTHM POSSIBLE LEFT ATRIAL ENLARGEMENT [-0.1mV P-WAVE IN V1/V2] POSSIBLE RIGHT VENTRICULAR CONDUCTION DELAY [RSR (QR) IN V1/V2] Compared to ECG 01/01/2023 10:31:17 Atrial fibrillation no longer present Myocardial infarct finding no longer present T-wave abnormality no longer present Possible ischemia no longer present Electronically Signed On 01-01-2023 12:07:36 CDT by Cindy Villanueva M.D. [id number]
--- NOTE | 2023-01-01 12:23 | PM.PROC ---
Procedure Note: Date of procedure: 01/01/23 Pre-procedure diagnosis: Atrial fibrillation Post-procedure diagnosis: other (Normal sinus rhythm) Procedure: MAY/ Cardioversion: After anesthesia team sedated the patient, we proceeded with advancing transesophageal echocardiogram probe. Images were obtained to rule out left atrial appendage thrombus. Once ruled out, we proceeded with DCCV with 200J synchronized shock x 1. Patient converted back successfully to NSR. Performing Provider: Cristiano Wray Complications: None Condition: stable Disposition: floor Coding Level of Care Code Acute Code for [facility]
--- NOTE | 2023-01-01 13:42 | ANE.PACU2 ---
Inpatient post-anesthesia follow up: Airway intact: Yes Vital signs: Temperature 97.6 F Pulse Rate 82 Respiratory Rate 16 Blood Pressure 106/74 Pulse Oximetry 100 Oxygen Delivery Me thod [ Room Air Current Rate & Del lj] Oxygen Delivery Me thod Room Air Oxygen Flow Rate Fraction of Inspir ed Oxygen Hydration adequate: Yes Nausea and vomiting: No Pain level: 1 Mental status: Baseline
[2023-01-01] MEDS: metoprolol tartrate 25 mg Tablet 12.5 MG PO (13:50)
--- NOTE | 2023-01-01 15:07 | P.DS_ITS ---
Discharge Providers Date of Admission: 12/29/22 23:00 Date of Discharge: January 01, 2023 Attending Provider at Admission: Shonda Torres MD Attending Provider at Discharge: Aime Pulido MD Primary Care Provider: Chad Whaley MD Diagnoses at Discharge Discharge Diagnosis (1) Atrial fibrillation: Status: Acute Reason for Visit Reason for Visit: shortness of breath Hospital Course Hospital Course Patient is a 57-year-old white female with past history of atrial fibrillation approximately 4 years ago that was self-limited who presented to the emergency department with palpitations. She was found to be in atrial fibrillation with r apid ventricular rate. Electrolytes were within normal limits. There was no evidence of hyperthyroidism. She was given a dose of Cardizem, and metoprolol was started. She reported past history of significant low heart rate with attempts at rate control in the past when she converted to sinus rhythm. An echocardiogram was obtained which demonstrated normal EF, mild tricuspid regurgitation. Consultation with cardiology occurred as the patient did not spontaneously convert, and remained in atrial fibrillation. It was noted that at rest on metoprolol, heart rate was approximately 70 but with any activity it skyrocketed to 1 20-1 40. Cardiology evaluation prompted a nuclear stress test to determine the best way to approach her atrial fibrillation. This test demonstrated a small size perfusion abnormality of mild severity apical inferior wall. Secondary to this possible scar tissue cardiology believed cardioversion would be the safest manner in which to achieve rhythm control. Her metoprolol was held secondary to her history of significant bradycardia with initiation of sinus rhythm, she was placed on anticoagulation in the form of Eliquis, and cardioversion occurred on January 01. This was successful. She was started on a very small dose of metoprolol 12.5 mg twice a day, first dose given while in the hospital which did not demonstrate significant bradycardia. It was thought at that point she could be discharged home with close follow-up with cardiology in 2 weeks, and event monitor to be placed, and anticoagulation for at least 4 weeks in the form of Eliquis for which a prescription was given. Risks and benefits of medication was described to the patient. She was able to ask questions, and agreed with the plan. Physical Exam Narrative: General exam no distress Neck is supple Cardiovascular regular rate and rhythm without murmur Lungs clear Abdomen is soft Extremities no cyanosis clubbing or edema Discharge Data Studies Completed and Pending Completed Studies During Hospitalization Category Date Time Status Sestamibi Stress Test Request Routine Exams 12/30/22 14:31 Completed XR chest 1V portable [id number] Stat Exams 12/29/22 22:09 Completed NM mary perf SPECT r/s* [id number] Routine Nuc Med 12/31/22 14:32 Completed CV. echo complete* [id number] Routine Ultrasound 12/30/22 Completed Pending at discharge Category Date Time Status CA echo doppler complete Routine Exams 12/29/22 23:59 [place] [id number] Routine Ultrasound 01/01/23 11:00 Taken Radiology Impressions Chest X-Ray 12/29/22 22:09 IMPRESSION: Mild enlargement of the cardiac silhouette compared to the prior exam which may reflect elevated intravascular volume and/or small pericardial effusion. Laboratory Results WBC 7.36 10^3/uL (3.29-11.43) 12/31/22 05:59 RBC 4.20 10^6/uL (3.85-5.65) 12/31/22 05:59 Hgb 12.50 g/dL (11.27-16.99) 12/31/22 05:59 Hct 39.5 % (36-47) 12/31/22 05:59 MCV 94.0 fl (85-98) 12/31/22 05:59 MCH 29.8 pg (27-33) 12/31/22 05:59 MCHC 31.6 g/dL (30-55) 12/31/22 05:59 RDW 13.9 % (12.1-15.1) 12/31/22 05:59 Plt Count 267 10^3/cmm (157-399) 12/31/22 05:59 MPV 10.1 fL (7.4-10.4) 12/31/22 05:59 Neut % (Auto) 58.2 % 12/31/22 05:59 Lymph % (Auto) 29.5 % 12/31/22 05:59 [place] % (Auto) 8.2 % 12/31/22 05:59 Eos % (Auto) 3.3 % 12/31/22 05:59 Baso % (Auto) 0.5 % 12/31/22 05:59 Neut # (Auto) 4.29 10^3/uL (1.8-7.7) 12/31/22 05:59 Lymph # (Auto) 2.2 10^3/uL (0.8-4.8) 12/31/22 05:59 [place] # (Auto) 0.6 10^3/uL (0.2-0.9) 12/31/22 05:59 Eos # (Auto) 0.2 10^3/uL (0.0-0.8) 12/31/22 05:59 Baso # (Auto) 0.0 10^3/uL (0.0-0.1) 12/31/22 05:59 Nucleated RBC % (auto) 0 % 12/31/22 05:59 Nucleated RBCs # 0.0 /100WBC 12/31/22 05:59 Sodium 139 mmol/L (136-145) 12/31/22 05:59 Potassium 4.4 mmol/L (3.5-5.1) 12/31/22 05:59 Chloride 104 mmol/L (98-107) 12/31/22 05:59 Carbon Dioxide 31 mmol/L (22-29) H 12/31/22 05:59 Anion Gap 8.4 (5-19) 12/31/22 05:59 BUN 14 mg/dL (6-20) 12/31/22 05:59 Creatinine 0.8 mg/dL (0.5-0.9) 12/31/22 05:59 GFR Calculation 74.2 mL/min (90-130) L 12/31/22 05:59 Glucose 94 mg/dL (65-115) 12/31/22 05:59 Calculated Osmolality 288 mOsm/kg (285-295) 12/31/22 05:59 Calcium 8.8 mg/dL (8.5-10.5) 12/31/22 05:59 Magnesium 1.9 mg/dL (1.7-2.3) 12/31/22 05:59 Total Bilirubin 0.4 mg/dL (0.15-1.2) 12/31/22 05:59 AST 23 U/L (0-32) 12/31/22 05:59 ALT 30 U/L (0-33) 12/31/22 05:59 Alkaline Phosphatase 74 U/L (35-105) 12/31/22 05:59 Troponin T Baseline 8 ng/L (0-10) 12/29/22 21:14 Troponin T 120 Minute 6.44 ng/L (0-10) 12/29/22 23:10 Delta Troponin T -1.56 ABS# (0-10) L 12/29/22 23:10 Troponin T Hi Sens 6Hr 6.68 ng/L (0-10) 12/30/22 05:05 Troponin T Hi Sens 6Hr Delta -1.32 ng/L (0-12) L 12/30/22 05:05 Total Protein 6.3 g/dL (6.6-8.7) L 12/31/22 05:59 Albumin 3.6 g/dL (3.5-5.2) 12/31/22 05:59 Globulin 2.7 g/dL (1.3-4.6) 12/31/22 05:59 TSH 4.33 uIU/mL (0.27-4.20) H 12/29/22 21:14 Vitals Last Vital Signs Temp 97.7 F 01/01/23 13:30 Pulse 77 01/01/23 13:30 Resp 19 H 01/01/23 13:30 BP 116/79 01/01/23 13:30 Pulse Ox 99 01/01/23 13:30 O2 Del Method Room Air 01/01/23 13:30 Discharge Plan Discharge Patient Disposition: Home Condition: Stable Prescriptions: New Eliquis 5 mg Tablet 5 mg PO BID@0900,2100 Qty: 60 0RF metoprolol tartrate 25 mg tablet 12.5 mg PO BID Qty: 30 0RF Continued (DME) [facility] See Rx Instructions .Route .MEDSUPPLY Qty: 1 0RF Rx Instructions: As directed ascorbic acid (vitamin C) [Vitamin C] 500 mg Tablet 1,000 mg PO QAM cholecalciferol (vitamin D3) [Vitamin D3] 125 mcg (5,000 unit) Tablet 125 mcg PO QAM vitamin B complex Tablet 1 tab PO QAM [place] 3 Fish Oil 684-1,200 mg Capsule,Delayed Release(Dr/Ec) 1 cap PO DAILY [facility] Multi Greens 3 cap PO DAILY [facility] Sulfurzyme 3 cap PO DAILY Discontinued diltiazem HCl 120 mg Capsule,Extended Release 12 Hr 120 mg PO BID PRN (Reason: afib) Other Ambulatory Orders: MCT/Event Monitor 21 Days (Routine) Timeframe: 1 Day Facility: [facility] - Location: Radiology Ordered By: Aime Pulido Referrals: Cristiano Wray M.D [Physician] - 2 weeks (MESSAGE SENT TO CLINIC 01/01@6933) Chad Whaley MD [Primary Care Provider] - 4-7 days (We have notified your physician's clinic of the need for a follow-up appointment to be scheduled. If you have not heard from them within the next 2 business days, please call them directly. You may also reach out to our medication care manager at [phone] and she can assist you.) Discharge Diet: Regular Discharge Activity: Increase activity as tolerated Patient Instructions: Opioid Safety Activity Restrictions/Additional Instructions: Take all meds as prescribed Return for any concerns. Event monitor to be arranged. Follow up with PCP and cardiology as above. Discharge Attestations Time Spent in Discharge Care*: greater than 30 min Quality Metrics Clinical Quality Measures [ No reported AMI, CVA or VTE this stay] Coding Level of Care Code 62234 Total time (in minutes) for Discharge: 35 Diagnoses Atrial fibrillation I48.91
== END 2023-01-01 16:10 | disposition home or self-care (01) ==
LOC: ER 22:23 → MEDSURG 23:01
PROVIDERS: Internal Medicine; Admitting Provider Internal Medicine; Emergency Provider Emergency Medicine; PCP Family Medicine; Visit Provider Internal Medicine
PROC: (CPT 93312; principal; 2023-01-01 11:00)
PROC: 5A2204Z Restoration of Cardiac Rhythm, Single (ICD-10-PCS; 2023-01-01 11:00)
DX: I48.0 Paroxysmal atrial fibrillation (principal); E66.01 Morbid (severe) obesity due to excess calories; Z68.43 Body mass index [BMI] 50.0-59.9, adult; G35 Multiple sclerosis
CPT/HCPCS: 36415; 71045; 78452; 80053; 83735; 84443; 84484; 85025; 92960; 93005; 93306; 93312; 93320; 93325; 96365; 96372; 96375; 96376; 99285; A9500; G0378; J0280; J1650; J2704; J2785; J3490; J7030; J7040